=== PATIENT | male | born 1995 | race Caucasian/White ===

== ENCOUNTER 2021-09-22 09:00 | Outpatient (CLI) | payer OTHER | END 2021-09-22 09:15 | disposition home or self-care (01) | LOC: PPH VACUNA 09:00 | PROVIDERS: ATTEND Emergency Medicine Pediatric Emergency Medicine | DX: Z23 Encounter for immunization (principal) ==

== ENCOUNTER 2022-09-25 20:43 | Emergency (ER) | payer OTHER ==
[~2022-09-25] VITALS: Ht 177.8 cm; Wt 77.1 kg
[2022-09-25] MEDS ORDERED: WELLBUTRIN XL300 MG PO (21:35)
== END 2022-09-25 22:51 | disposition home or self-care (01) ==
LOC: ER 20:43
DX: S61.310A Laceration without foreign body of right index finger with damage to nail, initial encounter (principal); S62.666A Nondisplaced fracture of distal phalanx of right little finger, initial encounter for closed fracture; X58.XXXA Exposure to other specified factors, initial encounter; Y93.89 Activity, other specified; Y92.9 Unspecified place or not applicable; Y99.9 Unspecified external cause status